=== PATIENT | male | born 1955 | race Caucasian/White ===

== ENCOUNTER → 2020-03-28 | Outpatient (CLI) | payer OTHER ==
[~2020-03-28] MED LIST: ACET500 PO; AMOX500; ATOR40TA PO; CEPH500 PO; CRUTCH2 USE; Ciloxan5 ML UD; GEMF600 PO; IBUP800 PO; METF500 PO; NICO14TP TOP; PANT40 PO; PRED1SU LEFTEYE; PROACE100 PO; Prinivil10 MG PO; RXPROACE PO; TRAM50 PO; VALA500 PO
[2020-03-28 20:49] LABS: Microalb/Creat Ratio UR, Rand 129.167 mg/g (0.000-30.000); Microalbumin, Random Urine 46.5 mg/L (0.000-20.000)
== END | disposition home or self-care (01) ==
LOC: LAB 17:39 → LAB SHORT 17:39
PROVIDERS: Physician Assistant
DX: E11.9 Type 2 diabetes mellitus without complications (principal)
CPT/HCPCS: 82043; 82570

== ENCOUNTER 2021-12-19 08:19 | Day surgery (SDC) | payer OTHER ==
[~2021-12-19] VITALS: Ht 180.3 cm; Wt 136.3 kg
[~2021-12-19 08:19] MED LIST changes: +AMLO10; +Aspir 8181 MG; +C COMPLEX1000 M1; +ERGO400; +FISH OIL 1,2001 EAC7; +MAGNESIUM OXID500 MG; +METFORMIN ER1000 M2; +Pravastatin Sod40 MG; +Vitamin B-12100 MCG; +ZESTRIL40 M2; +Zinc Gluconate100 MG
== END 2021-12-19 11:30 | disposition home or self-care (01) ==
LOC: ORSCSDS 08:19
PROVIDERS: Surgery
PROC: 0DBN8ZX Excision of Sigmoid Colon, Via Natural or Artificial Opening Endoscopic, Diagnostic (ICD-10-PCS; principal; 2021-12-19 09:45)
PROC: 0DBM8ZX Excision of Descending Colon, Via Natural or Artificial Opening Endoscopic, Diagnostic (ICD-10-PCS; principal; 2021-12-19 09:45)
PROC: 0DBK8ZX Excision of Ascending Colon, Via Natural or Artificial Opening Endoscopic, Diagnostic (ICD-10-PCS; principal; 2021-12-19 09:45)
DX: Z12.11 Encounter for screening for malignant neoplasm of colon (principal); D12.4 Benign neoplasm of descending colon; D12.2 Benign neoplasm of ascending colon; D12.5 Benign neoplasm of sigmoid colon; I10 Essential (primary) hypertension; E78.5 Hyperlipidemia, unspecified; F17.220 Nicotine dependence, chewing tobacco, uncomplicated; E66.01 Morbid (severe) obesity due to excess calories; Z68.41 Body mass index [BMI] 40.0-44.9, adult; E11.42 Type 2 diabetes mellitus with diabetic polyneuropathy; Z79.84 Long term (current) use of oral hypoglycemic drugs; G47.33 Obstructive sleep apnea (adult) (pediatric); Z79.899 Other long term (current) drug therapy
CPT/HCPCS: 82947; 88305; J2250; J2704; J7120

== ENCOUNTER 2022-01-15 13:21 | Observation (INO) | payer OTHER ==
[~2022-01-15] VITALS: Ht 177.8 cm; Wt 136.1 kg
[~2022-01-15 13:21] MED LIST changes: -AMLO10; +AMLO10 PO; -Aspir 8181 MG; +Aspir 8181 MG PO; -C COMPLEX1000 M1; +C COMPLEX1000 M1 PO; -ERGO400; -FISH OIL 1,2001 EAC7; +FISH OIL 1,2001 EAC7 PO; -METFORMIN ER1000 M2; +METFORMIN ER1000 M2 PO; -Pravastatin Sod40 MG; +Pravastatin Sod40 MG PO; +THERA-D2000 UNIT PO; -Vitamin B-12100 MCG; +Vitamin B-12100 MCG PO; -ZESTRIL40 M2; +ZESTRIL40 M2 PO
[2022-01-15 14:19] LABS: BASOPHILS ABSOLUTE AUTO 0.15 K/mm3 (0.00-0.23); BASOPHILS PERCENT AUTO 1 % (0-2); EOSINOPHILS ABSOLUTE AUTO 0.55 K/mm3 (0.00-0.68); EOSINOPHILS PERCENT AUTO 5 % (0-6); Hematocrit 45.5 % (37.0-53.0); Hemoglobin 14.7 g/dL (13.5-17.5); IMMATURE GRAN ABSOLUTE AUTO 0.08 K/mm3 (0.00-0.10); IMMATURE GRAN PERCENT AUTO 1 % (0-1); LYMPHOCYTES ABSOLUTE AUTO 1.65 K/mm3 (0.84-5.20); LYMPHOCYTES PERCENT AUTO 16 % (21-46); MONOCYTES ABSOLUTE AUTO 0.59 K/mm3 (0.16-1.47); MONOCYTES PERCENT AUTO 6 % (4-13); Mean Corpuscular HGB 29.4 pg (26.0-34.0); Mean Corpuscular HGB Conc 32.3 g/dL (31.5-36.5); Mean Corpuscular Volume 91 fL (80-100); Mean Platelet Volume 10.2 fL (9.1-12.4); NEUTROPHILS ABSOLUTE AUTO 7.52 K/mm3 (1.96-9.15); NEUTROPHILS PERCENT AUTO 71 % (41-73); Platelet Count 187 K/mm3 (150-400); RDW Coefficient Variation 13.9 % (11.7-14.2); RDW Standard Deviation 46.2 fL (35.1-46.3); White Blood Cell Count 10.54 K/mm3 (4.00-11.30)
[2022-01-15 14:31] LABS: Alanine Aminotransfer (ALT/SGP 71 U/L (12-78); Albumin, Blood 3.5 g/dL (3.4-5.0); Albumin/Globulin Ratio 0.9 (0.8-1.8); Alk Phos 83 U/L (50-136); Anion Gap 10 mmol/L (6-16); Aspartate Aminotrans (AST/SGOT 53 U/L (12-37); Bilirubin, Total 0.6 mg/dL (0.1-1.0); Blood Urea Nitrogen 19 mg/dL (8-24); Bun/Creatinine Ratio 24.4 (12.0-20.0); CO2, Blood 22 mmol/L (21-32); Calcium, Blood 9.2 mg/dL (8.5-10.1); Chloride, Blood 105 mmol/L (98-108); Creatinine, Blood 0.78 mg/dL (0.60-1.20); Globulin, Blood 4.1 g/dL (2.2-4.0); Glomerular Filtration Rate >60 (60-); Glucose, Blood 206 mg/dL (70-99); Potassium, Blood 4.2 mmol/L (3.5-5.5); Sodium, Blood 137 mmol/L (136-145); Total Protein, Blood 7.6 g/dL (6.4-8.2)
[2022-01-15 18:32] LABS: CPK Creatine Kinase 198 U/L (39-308)
[2022-01-15 22:01] LABS: Source, Urine Clean Catch
[2022-01-15 22:08] LABS: Bilirubin, Urine Neg (Neg); Blood, Urine Neg (Neg); Glucose Qualitative, Urine Neg (Neg); Ketones, Urine Neg (Neg); Leukocyte Esterase, Urine Neg (Neg); Nitrite, Urine Neg (Neg); Protein, Urine 1+ (Neg); Urobilinogen, Urine NORM (Normal)
[2022-01-15 22:15] LABS: Appearance, Urine Clear (Clear); Color, Urine Yellow (P-Yellow)
[2022-01-16 01:32] LABS: BASOPHILS ABSOLUTE AUTO 0.11 K/mm3 (0.00-0.23); BASOPHILS PERCENT AUTO 1 % (0-2); EOSINOPHILS ABSOLUTE AUTO 0.78 K/mm3 (0.00-0.68); EOSINOPHILS PERCENT AUTO 8 % (0-6); Hematocrit 39.7 % (37.0-53.0); Hemoglobin 13.3 g/dL (13.5-17.5); IMMATURE GRAN ABSOLUTE AUTO 0.04 K/mm3 (0.00-0.10); IMMATURE GRAN PERCENT AUTO 0 % (0-1); LYMPHOCYTES ABSOLUTE AUTO 3.02 K/mm3 (0.84-5.20); LYMPHOCYTES PERCENT AUTO 30 % (21-46); MONOCYTES PERCENT AUTO 7 % (4-13); Mean Corpuscular HGB 29.4 pg (26.0-34.0); Mean Corpuscular HGB Conc 33.5 g/dL (31.5-36.5); Mean Corpuscular Volume 88 fL (80-100); Mean Platelet Volume 9.9 fL (9.1-12.4); NEUTROPHILS ABSOLUTE AUTO 5.36 K/mm3 (1.96-9.15); NEUTROPHILS PERCENT AUTO 54 % (41-73); Platelet Count 169 K/mm3 (150-400); RDW Coefficient Variation 13.7 % (11.7-14.2); RDW Standard Deviation 44.3 fL (35.1-46.3); Red Blood Cell Count 4.52 M/mm3 (4.30-5.90); White Blood Cell Count 10.01 K/mm3 (4.00-11.30)
[2022-01-16 01:51] LABS: Alanine Aminotransfer (ALT/SGP 55 U/L (12-78); Albumin, Blood 3.1 g/dL (3.4-5.0); Albumin/Globulin Ratio 0.8 (0.8-1.8); Alk Phos 64 U/L (50-136); Anion Gap 8 mmol/L (6-16); Aspartate Aminotrans (AST/SGOT 36 U/L (12-37); Bilirubin, Total 0.6 mg/dL (0.1-1.0); Blood Urea Nitrogen 18 mg/dL (8-24); Bun/Creatinine Ratio 24.5 (12.0-20.0); CO2, Blood 27 mmol/L (21-32); Calcium, Blood 9.1 mg/dL (8.5-10.1); Chloride, Blood 104 mmol/L (98-108); Creatinine, Blood 0.74 mg/dL (0.60-1.20); Globulin, Blood 3.9 g/dL (2.2-4.0); Glomerular Filtration Rate >60 (60-); Glucose, Blood 160 mg/dL (70-99); Potassium, Blood 3.6 mmol/L (3.5-5.5); Sodium, Blood 139 mmol/L (136-145)
[2022-01-16 01:52] LABS: CPK Creatine Kinase 185 U/L (39-308)
--- NOTE | 2022-01-16 05:02 | NUR ---
ADMISSION NOTE/SHIFT SUMMARY PATEINT AOX4 ABLE TO VOICE NEEDS INDEPENDENT ABLE TO ANSWER ALL QUESTION ON ADM ASSESSMENT LUNGS SOUND CLEAR CASSI CHEST PAIN SKIN INTACT ABD SOFT NONTENDER WITH POSITIVE BOWEL SOUNDS X 4 QUADS ABDOMINAL DISTENDED.
--- NOTE | 2022-01-16 13:08 | NUR ---
Pt. is siting up and eating lunch. Pt. welcomed my visit. Pt. is pleasant with not significant complaints, but is unsettled by under lying causes of his hospitalization. Listen empethetically, and quickly develop rapport. Pt. verbalizes his conor and gratitude for his conor community. Prayed for Pt. Pt. displays evidence of encourgaement, and verbalizes gratitude for the spiritual care visit.
--- NOTE | 2022-01-16 18:29 | NUR ---
PATIENT DENIES CHEST PAIN THIS SHIFT, TELE IN PLACE: NSR WITH PVCS. PATIENT INDEPENDENT IN ROOM, AT BEDSIDE. STRESS TEST SCHEDULED FOR TOMORROW, NPO AT MIDNIGHT, PATIENT AGREES WITH PLAN. BP HIGH THIS AFTERNOON, GAVE AMLOPIDINE/LISINOPRIL OTHER HOME MEDS NOT ORDERED AT THIS TIME. LOVENOX FOR DVT PROPHYLAXSIS. WILL CONTINUE PLAN OF CARE.
--- NOTE | 2022-01-17 05:54 | NUR ---
SHIFT SUMMARY 66 YR M ADMITTED ON 01/15/22 FOR CHEST PAIN. FULL CODE. NO ACUTE CHANGES THIS SHIFT. PT DENIES CHEST PAIN AND WAS ABLE TO REST COMFORTABLY. HE HAS BEEN NPO SINCE MIDNIGHT AND WILL HAVE A STRESS TEST THIS A.M. HE IS INDEPENDANT AND COOPERATIVE IN HIS ROOM. PER RN PEDIATRIC ICU HE IS SR W/ PAC'S @ 65.
--- NOTE | 2022-01-17 17:16 | NUR ---
END OF THIS SUMMARY: NO ACUTE CHANGES TO PT STATUS THIS SHIFT. VSS, PATIENT DENIES N/V, SOB, CHEST PAIN. STRESS TEST ORDERED, NPO AT MIDNIGHT. CBGS STABLE SSI GIVEN. NO OTHER CONCERNS AT THIS TIME.
--- NOTE | 2022-01-17 18:17 | NUR ---
PATIENT HAD A WATER BOTTLE WRAPPED IN COBAN, NURSE ASKED PATIENT ABOUT THE BOTTLE, PT ADMITTED TO USING CHEWING TOBACCO. NURSE ASKED IF HE HAS BEEN CHEWING DURING THIS ENTIRE HOSPITLIZATION AND HE SAID YES. EDUCATION PROVIDED ON THE IMPORTANCE OF THE CARDIAC TEST TO RULE OUT HIS CHIEF C/O OF CHEST PAIN, AND NOT USING CHEWING TOBACCO IN THE HOSPITAL. ALSO EXPLAINED THAT [facility] IS A TOBACCO FREE CAMPUS, AND CHEWING IS AGAINST THE HOSPITAL POLICY. CALLED AND LEFT VOICEMAIL FOR DR. SUNSHINE R/T THIS EVENT.
--- NOTE | 2022-01-17 19:26 | NUR ---
AWAKE, WATCHING TV. NURSE DISCUSSED NO TOBACCO RULES - INCLUDING CHEWING TOBACCO. PT VOICED UNDERSTANDING AND AGREEMENT. WILL FOLLOW UP WITH NICOTINE PATCH ORDERS - SEE MAR FOR DETAILS. CALL LIGHT IN REACH
--- NOTE | 2022-01-17 19:59 | NUR ---
REFUSED NICOTINE PATCH AT THIS TIME. VOICED HE WOULD LET ME KNOW IF HE CHANGED HIS MIND LATER
--- NOTE | 2022-01-18 03:51 | NUR ---
[employer]OP ATTENDANT SUMMARY REFUSED NICOTINE PATCH SHCEDULED LAST EVENING, VOICED HE WOULD LET NURSE KNOW IF HE CHANGED HIS MIND. NPO SINCE MIDNIGHT FOR STRESS TEST SCHEDULED LATER TODAY. NO COMPLAINTS OF CHEST PAIN, NO NOTED S/S ACUTE DISTRESS. HAS BEEN RESTING QUIETLY WITH WFE INTERRUPTIONS SINCE HS. CALL LIGHT IN REACH
--- NOTE | 2022-01-18 15:11 | NUR ---
DISCHARGE SUMMARY: PT A/O X 4 IND AT TIME OF DISCHARGE AND REPORTED NO SYMPTOMS OF CP T/OUT THE DAY. PT EDUCATED ON DC INSTRUCTIONS AND MEDICATION CHANGES. PT ADVISED TO CALL DR. MEADOWS OFFICE IN THE AM TO MAKE FOLLOW-UP APPOINTMENT. PT AND MANDIE. PT ESCORTED TO POV BY BINU BAHENA.
== END 2022-01-18 14:58 | disposition home or self-care (01) ==
LOC: ER 13:21 → MEDS 13:22 → ER 19:29 → MEDS 19:35 → ENPENDDIS 01-18 12:41 → MEDS 01-18 14:58
PROVIDERS: Physician Assistant; ADMIT Internal Medicine
DX: I25.119 Atherosclerotic heart disease of native coronary artery with unspecified angina pectoris (principal); I10 Essential (primary) hypertension; E11.9 Type 2 diabetes mellitus without complications; E78.5 Hyperlipidemia, unspecified; G47.30 Sleep apnea, unspecified; E66.01 Morbid (severe) obesity due to excess calories; Z87.891 Personal history of nicotine dependence; Z68.41 Body mass index [BMI] 40.0-44.9, adult; Z79.82 Long term (current) use of aspirin; Z79.84 Long term (current) use of oral hypoglycemic drugs
CPT/HCPCS: 36415; 71046; 78452; 80053; 82550; 82947; 83690; 83880; 84439; 84443; 84484; 85025; 90686; 93005; 93010; 93017; 93306; 96372; 99285-25; A9270; A9500; G0008; J0706; J1650; J2785

== ENCOUNTER 2024-05-09 16:59 | Emergency (ER) | payer OTHER, MEDICARE ==
[~2024-05-09] VITALS: Ht 180.3 cm; Wt 99.8 kg
[2024-05-09 17:31] LABS: BASOPHILS ABSOLUTE AUTO 0.04 K/mm3 (0.00-0.23); BASOPHILS PERCENT AUTO 0 % (0-2); EOSINOPHILS ABSOLUTE AUTO 0.13 K/mm3 (0.00-0.68); EOSINOPHILS PERCENT AUTO 1 % (0-6); Hematocrit 47.5 % (37.0-53.0); Hemoglobin 15.6 g/dL (13.5-17.5); IMMATURE GRAN ABSOLUTE AUTO 0.04 K/mm3 (0.00-0.10); IMMATURE GRAN PERCENT AUTO 0 % (0-1); LYMPHOCYTES ABSOLUTE AUTO 0.23 K/mm3 (0.84-5.20); LYMPHOCYTES PERCENT AUTO 2 % (21-46); MONOCYTES ABSOLUTE AUTO 0.46 K/mm3 (0.16-1.47); MONOCYTES PERCENT AUTO 4 % (4-13); Mean Corpuscular HGB 30.6 pg (26.0-34.0); Mean Corpuscular HGB Conc 32.8 g/dL (31.5-36.5); Mean Corpuscular Volume 93 fL (80-100); Mean Platelet Volume 10.7 fL (9.1-12.4); NEUTROPHILS ABSOLUTE AUTO 10.57 K/mm3 (1.96-9.15); NEUTROPHILS PERCENT AUTO 92 % (41-73); Platelet Count 160 K/mm3 (150-400); RDW Coefficient Variation 13.8 % (11.7-14.2); RDW Standard Deviation 48.1 fL (35.1-46.3); White Blood Cell Count 11.47 K/mm3 (4.00-11.30)
[2024-05-09] MEDS ORDERED: Morphine Sulfate 4 MG/1 ML Injection ONE (17:34)
[2024-05-09] MEDS ORDERED: Morphine Sulfate 4 MG/1 ML Injection IV ONE (17:35)
[2024-05-09] MEDS ORDERED: Human Prothrombin Complx(Pcc) 2,000 UNIT in Water For Injection,Sterile 80 ML IV ONE (18:40)
[2024-05-09] MEDS ORDERED: levETIRAcetam 1,000 MG in NS 100 ML IV ONE (18:40)
[2024-05-09 18:45] VITALS: BP 168/80
[2024-05-09 18:45] LABS: Albumin, Blood 3.2 g/dL (3.4-5.0); Albumin/Globulin Ratio 0.8 (0.8-1.8); Bilirubin, Total 0.9 mg/dL (0.1-1.0); Bun/Creatinine Ratio 23.4 (12.0-20.0); Calcium, Blood 8.5 mg/dL (8.5-10.1); Creatinine, Blood 0.6 mg/dL (0.60-1.20); Globulin, Blood 3.8 g/dL (2.2-4.0); Potassium, Blood 4.6 mmol/L (3.5-5.5)
== END 2024-05-09 19:20 | disposition short-term general hospital (02) ==
LOC: ER 16:59
PROVIDERS: Emergency Medicine
DX: S06.5X9A Traumatic subdural hemorrhage with loss of consciousness of unspecified duration, initial encounter (principal); S12.601A Unspecified nondisplaced fracture of seventh cervical vertebra, initial encounter for closed fracture; I48.91 Unspecified atrial fibrillation; I10 Essential (primary) hypertension; E11.9 Type 2 diabetes mellitus without complications; G47.30 Sleep apnea, unspecified; E78.5 Hyperlipidemia, unspecified; W01.0XXA Fall on same level from slipping, tripping and stumbling without subsequent striking against object, initial encounter; Z87.891 Personal history of nicotine dependence; Z79.82 Long term (current) use of aspirin; Z79.84 Long term (current) use of oral hypoglycemic drugs; Z79.899 Other long term (current) drug therapy; Z88.5 Allergy status to narcotic agent
CPT/HCPCS: 70450; 71045; 72125; 80053; 82550; 84484; 85025; 93005; 93010; 96374; 96375; 99285-25; J1953; J2270; J7168